=== PATIENT | female | born 1955 | race Caucasian/White ===

== ENCOUNTER 2020-11-01 08:05 | Observation (INO) | payer BC, OTHER ==
[2020-11-01] VITALS (9 sets, daily range): BP systolic 80–141; BP diastolic 39–64
[~2020-11-01] VITALS: Ht 157.5 cm; Wt 72.6 kg
[2020-11-01 08:57] LABS: HEMATOCRIT 36.6 % (37.0-47.0); HEMOGLOBIN 12.7 gm/dL (12.0-15.0); MCHC 34.7 g/dL (28.0-37.0); MCV 89.3 fL (80.0-100.0); RBC 4.1 mil/uL (4.20-5.00); RDW 11.7 % (10.5-14.5); WBC 6.8 thou/uL (4.0-11.0)
[2020-11-01 09:04] LABS: CALCIUM 10.9 mg/dL (8.5-10.1); CREATININE 1.5 mg/dL (0.6-1.0); POTASSIUM 4.6 mmol/L (3.5-5.1)
[2020-11-01] MEDS ORDERED: ASA81BEC PO (09:08)
[2020-11-01] MEDS ORDERED: ZETIA10 MG PO (09:09)
[2020-11-01] MEDS ORDERED: CALCIUM500 MG PO (09:09)
[2020-11-01] MEDS ORDERED: FISH OIL 1,001000 M3 PO (09:10)
[2020-11-01] MEDS ORDERED: HYDROCHLOROTHIA25 M1 PO (09:11)
[2020-11-01] MEDS ORDERED: GEMFIBROZIL 60600 MG PO (09:11)
[2020-11-01] MEDS ORDERED: LISINOPRIL20 MG PO (09:11)
[2020-11-01] MEDS ORDERED: MELOXICAM15 MG PO (09:12)
[2020-11-01] MEDS ORDERED: METFORMIN HCL500 M3 PO (09:12)
[2020-11-01] MEDS ORDERED: METOPROLOL TART75 MG PO (09:13)
[2020-11-01] MEDS ORDERED: MULTI VITAMIN1 EACH PO (09:14)
[2020-11-01] MEDS ORDERED: MONTELUKAST SODI4 M1 PO (09:14)
[2020-11-01] MEDS ORDERED: NIACIN 500 MG500 M1 PO (09:14)
[2020-11-01] MEDS ORDERED: PRILOSEC OTC20 MG PO (09:16)
[2020-11-01] MEDS ORDERED: TYLENOL325 M1 PO (09:16)
[2020-11-01] MEDS ORDERED: VITAMIN C1000 MG PO (09:17)
[2020-11-01] MEDS ORDERED: VENTOLIN HFA INH8 GM INH (09:17)
[2020-11-01] MEDS ORDERED: VITAMIN E1000 UNIT PO (09:18)
[2020-11-01] MEDS ORDERED: VITAMIN D21250 MC1 PO (09:18)
[2020-11-01] MEDS ORDERED: VOLTAREN GEL 1100 G1 TOP (09:19)
[2020-11-01] MEDS ORDERED: ZYRTEC10 M4 PO (09:19)
--- NOTE | 2020-11-01 15:42 | NUR ---
TO UNIT BY CART AT 1500, REPORT FROM FELICITY GUEVARA. VSS, HYPOTENSIVE, ASYMPTOMATIC. RIGHT GROIN SITE SOFT, NONTENDER, CDI. AT BEDSIDE.
--- NOTE | 2020-11-01 17:13 | EKG ---
[address] [address] ELECTROCARDIOGRAM REPORT Name: PASCUAL SCHAFFER Room #: 213-[facility] M.R.#: [id number] Admission: 11/01/20 Attend Phys: Magdi Vaughan MD, Discharge: Date of : 53 Report #: [id number] [facility] Test Date: 2020-11-01 Test Time: 08:33:20 Pat Name: PASCUAL SCHAFFER Department: Room: 213 Gender: F Differential Tester: SBULERNIE : 1955 Requested By: Magdi Vaughan Order Number: [id number] MD: Fabian Lake Measurements Intervals [place] Rate: 67 P: 49 AK: 126 QRS: 20 QRSD: 90 T: 53 QT: 398 QTc: 420 Interpretive Statements Sinus rhythm Normal tracing No previous ECG available for comparison Electronically Signed On 11-01-2020 17:13:36 CDT by Fabian Lake [email or web address] <ELECTRONICALLY SIGNED> By: Fabian Lake MD, [facility] 11/01/20 1713 0833 0833 Fabian Lake MD, FAC /EPI
--- NOTE | 2020-11-02 02:28 | NUR ---
BP LOW BUT BETTER AT MIDNIGHT.RIGHT GROIN C/D/I.DENIES ANY PAIN.MONITOR SHOW SR.POC CONTINUED.
[2020-11-02 04:01] VITALS: BP 94/47
[2020-11-02 05:32] LABS: HEMATOCRIT 30.6 % (37.0-47.0); MCH 31.1 pg (26.0-34.0); MCHC 34.7 g/dL (28.0-37.0); MCV 89.7 fL (80.0-100.0); RBC 3.41 mil/uL (4.20-5.00); RDW 11.9 % (10.5-14.5)
[2020-11-02 05:40] LABS: CALCIUM 9.3 mg/dL (8.5-10.1); CREATININE 1.3 mg/dL (0.6-1.0); POTASSIUM 4.9 mmol/L (3.5-5.1); TROPONIN-I 0.52 ng/mL (<0.06)
[2020-11-02 06:02] LABS: HEMOGLOBIN 10.6 gm/dL (12.0-15.0)
--- NOTE | 2020-11-02 07:04 | EKG ---
[address] [address] ELECTROCARDIOGRAM REPORT Name: PASCUAL SCHAFFER Room #: 213-[facility] M.R.#: [id number] Admission: 11/01/20 Attend Phys: Magdi Vaughan MD, Discharge: Date of : 53 Report #: [id number] [facility] Test Date: 2020-11-01 Test Time: 18:34:21 Pat Name: PASCUAL SCHAFFER Department: Room: 213 Gender: F [employer]: FSCHWALBE : 1955 Requested By: Magdi Vaughan Order Number: [id number] MD: Rickey Alvarenga Measurements Intervals [place] Rate: 67 P: 50 AR: 140 QRS: 26 QRSD: 88 T: 57 QT: 403 QTc: 426 Interpretive Statements Sinus rhythm Baseline wander in lead(s) V6 Compared to ECG 11/01/2020 08:33:20 No significant changes Electronically Signed On 11-02-2020 7:04:09 CDT by Rickey Alvarenga [email or web address] <ELECTRONICALLY SIGNED> By: Rickey Alvarenga MD, [facility] 11/02/20 0704 33 33 Rickey Alvarenga MD, [facility] /EPI
[2020-11-02 07:55] VITALS: BP 129/53
[2020-11-02] MEDS ORDERED: IMDUR 30 MG TAB30 M1 PO (08:10)
--- NOTE | 2020-11-02 09:23 | EKG ---
[address] [address] ELECTROCARDIOGRAM REPORT Name: PASCUAL SCHAFFER Room #: 213-[facility] M.R.#: [id number] Admission: 11/01/20 Attend Phys: Magdi Vaughan MD, Discharge: Date of : 53 Report #: [id number] [facility] Test Date: 2020-11-02 Test Time: 07:08:00 Pat Name: PASCUAL SCHAFFER Department: Room: 213 P Gender: F Acute Care Physical Therapist: SBRODOLFO : 1955 Requested By: Tran Bryant Order Number: [id number] : Rickey Alvarenga Measurements Intervals [place] Rate: 66 P: 54 ME: 130 QRS: 29 QRSD: 88 T: 62 QT: 418 QTc: 438 Interpretive Statements Sinus rhythm Compared to ECG 11/01/2020 18:34:21 No significant changes Electronically Signed On 11-02-2020 9:23:24 CDT by Rickey Alvarenga [email or web address] <ELECTRONICALLY SIGNED> By: Rickey Alvarenga MD, [facility] 11/02/20 0923 0708 7 Rickey Alvarenga MD, FACC /EPI
[2020-11-02 11:14] VITALS: BP 129/53
[2020-11-02 11:15] VITALS: BP 108/49
--- NOTE | 2020-11-02 11:54 | NUR ---
PATIENT DISCHARGED AT 1130. IV REMOVED. PATIENT EDUCATED ON NEW MEDICATION AND DISCHARGE PACKET REVIEWED WITH PATIENT AND SPOUSE. PATIENT VOICES UNDERSTANDING OF THIS INFORMATION. PATIENT ESCORTED OUT TO 'S VECHICLE WITH BELONGINGS INCLUDING PURSE AND CELL PHONE.
--- NOTE | 2020-11-02 17:36 | CATHLAB ---
[facility] [place] [address] INVASIVE PROCEDURE REPORT Name: PASCUAL SCHAFFER Room #: 213-[facility]#: [id number] Admission: 11/01/20 Attend Phys: Magdi Vaughan MD, Discharge: 11/02/20 Date of : 53 Report #: [id number] THIS REPORT FOR: cc: NIKOLAY MURILLO NO FAMILY PHYSICIAN or PCP Magdi Vaughan MD [facility] ~ APPROVED REPORT Study performed: 11/01/2020 11:19:31 Patient Details Patient Status: Out-Patient Room #: The patient is a 65 year-old female Event Personnel Magdi Vaughan [employer] Operator, Tari Villegas RTR Monitor, Eugenie Steel RTR, JACQUELYN Ordonezub, Vanessa Jerez RN RN, Malik Ennis RTR Process Tech Procedures Performed Art Access - R femoral artery* Left Heart Cath w/or w/o Coronaries 2798192 [facility] Aortogram Abdominal Peripheral Angio 200982 Hemostasis w/ Mynx 29276 Initial Mod Sed Same Phys/QHP Gr5y 297871 91437 Mod Sed Same Phys/QHP Ea 078538 Procedure Narrative The Right Groin^ was infiltrated with 1% Lidocaine subcutaneous anesthesia. A PINNACLE 6FR Sheath #[id number] sheath was inserted into the RFA^. Coronary angiography was performed using coronary diagnostic catheters. The right coronary system was accessed and visualized with a JR4 catheter. The left coronary system was accessed and visualized with a JL4 catheter. The left ventricle was accessed and visualized with a PIGTAIL catheter. Left ventriculogram was performed in 30 degree projection. An aortogram of the abdominal aorta was performed. Closure device was deployed with a Fr MYNXGRIP 6/7F #[id number]. The patient tolerated the procedure well and there were no complications associated with the procedure. There was no hematoma. An intervention was attempted. Unable to cross lesion with the wire. Intraoperative Conscious Sedation Sedation start time: 12:04 Case end Time: 13:16 Fentanyl 75 mcg Versed 1.[address] [address] INVASIVE PROCEDURE REPORT Name: PASCUAL SCHAFFER Room #: 213-P [facility]#: [id number] Admission: 11/01/20 Attend Phys: Magdi Vaughan, Discharge: 11/02/20 Date of : 53 Report #: [id number] Fluoro Time: 24.20 minutes Dose: DAP 36756.20 cGycm2 4985 mGy Contrast Type and Amount: Visipaque 255 ml Hemodynamics The aortic pressure is 172/58 mmHg with a mean of 113 mmHg. The left ventricular pressure is 181/-9 mmHg with a mean of mmHg. The left ventricular end diastolic pressure is 13 mmHg. Conclusion #1. 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 This vessel is relatively small and well collateralized. No chest pain or EKG changes are noted. #2 left main mild disease giving rise to an LAD which occludes ostially and a diagonal circumflex OM system #3 circumflex OM with an eccentric proximal lesion of 60 to 70% giving rise to a preserved moderate size OM system. Does not appear to be flow-limiting. Moderate tortuosity. Moderate calcification proximally. #4 dominant right coronary is well preserved and there is extensive collateralization through septal perforators to the LAD filling the apical LAD and retrograde up to the proximal LAD. #5 normal ventricular size and systolic function EF 60% #6 moderately ectatic abdominal aorta on aortogram with moderate infrarenal aortic ectasia no definite aneurysm. Renal arteries appear patent. Recommendations and plan: Continue aggressive risk factor modification. Will observe overnight to attempted angioplasty. But no changes in EKG or chest pain. Troponins remain negative will repeat in a.m. Consider addition of nitrate. The risk benefit to attempting to open this LAD which is well collateralized does not appear to be in the patient's favor. Aggressive medical therapy. <ELECTRONICALLY SIGNED> By: Magdi Vaughan MD, FACC 11/02/201734 34 34 Magdi Vaughan MD, FACC /INF
== END 2020-11-02 11:39 | disposition home or self-care (01) ==
LOC: CATH 08:05 → 2N 15:37
PROVIDERS: Nurse Practitioner Adult Health; ADMIT Internal Medicine Cardiovascular Disease; ATTEND Internal Medicine Cardiovascular Disease
DX: I25.119 Atherosclerotic heart disease of native coronary artery with unspecified angina pectoris (principal); I10 Essential (primary) hypertension; E11.9 Type 2 diabetes mellitus without complications; E78.5 Hyperlipidemia, unspecified; Z79.82 Long term (current) use of aspirin; Z79.84 Long term (current) use of oral hypoglycemic drugs; Z88.8 Allergy status to other drugs, medicaments and biological substances; Z79.899 Other long term (current) drug therapy